=== PATIENT | female | born 2000 | race Caucasian/White ===

== ENCOUNTER 2023-01-30 02:48 | Day surgery (SDC) | payer OTHER ==
[2023-01-30 02:53] VITALS: BMI 33.4
[2023-01-30] MEDS ORDERED: Lactated Ringer's 1,000 ML IV SCH (03:10)
[2023-01-30] MEDS ORDERED: hydrALAZINE 20 MG/ML VIAL SLOW IVP PRN (06:36)
== END 2023-01-30 06:49 | disposition home or self-care (01) ==
LOC: CSHLD/OP 02:48
PROVIDERS: ATTEND Obstetrics & Gynecology
DX: O21.2 Late vomiting of pregnancy (principal); O99.891 Other specified diseases and conditions complicating pregnancy; R10.9 Unspecified abdominal pain; Z3A.31 31 weeks gestation of pregnancy; Z88.0 Allergy status to penicillin; Z91.040 Latex allergy status
CPT/HCPCS: 96360; 96361; 99283

== ENCOUNTER 2023-03-19 16:49 | Day surgery (SDC) | payer OTHER ==
[2023-03-19] MEDS ORDERED: hydrALAZINE 20 MG/ML VIAL SLOW IVP PRN (17:14)
[2023-03-19] MEDS ORDERED: Lactated Ringer's 1,000 ML IV SCH (17:30)
[2023-03-19 17:54] LABS: #Eosinphils 0.1 10x3/uL (0.0-0.5); #Monocytes 0.8 10x3/uL (0.0-1.1); #Neutrophils 9.6 10x3/uL (1.5-8.4); %Basophils 0.2 % (0.0-2.0); %Eosinophils 0.9 % (0.0-6.0); %Lymphocytes 12.8 % (18.0-47.0); %Monocytes 6.5 % (0.0-10.0); %Neutrophils 79.3 % (40.0-75.0); Hematocrit 32.8 % (34.9-44.5); Hemoglobin 10.5 g/dL (12.0-15.5); Mean Corpuscular Hemoglobin 25.7 pg (27.0-33.0); Mean Corpuscular Volume 80.2 fl (81.6-98.3); Mean Platelet Volume 12.4 fl (7.4-10.4); Platelet Count 236 10x3/uL (150-450); RBC Distribution Width 14.6 % (11.5-14.5); Red Blood Cell (RBC) Count 4.09 10x6/uL (3.90-5.03); White Blood Cell (WBC) Count 12.1 10x3/uL (3.5-10.5)
[2023-03-19] MEDS ORDERED: Ondansetron PF 4 MG/2 ML Vial IVP SCH (18:00)
[2023-03-19 18:07] VITALS: BMI 34.9
[2023-03-19 18:14] LABS: ALT (SGPT) 9 U/L (8-55); AST (SGOT) 13 U/L (5-34); Albumin 3.4 g/dL (3.5-5.0); Alkaline Phosphatase 123 U/L (40-110); Anion Gap 12 mmol/L (10-20); BUN (Urea Nitrogen) 9 mg/dL (7.0-18.7); Bilirubin, Total 0.3 mg/dL (0.2-1.2); Calc. Creatinine Clearance 222 mL/min (70-130); Carbon Dioxide 23 mmol/L (22-29); Chloride 106 mmol/L (98-107); Estimated GFR 127; Globulin 3.2 g/dL (2.4-3.5); Glucose 102 mg/dL (70-105); Potassium 4.1 mmol/L (3.5-5.1); Protein, Total 6.6 g/dL (6.0-8.3); Sodium 137 mmol/L (136-145)
[2023-03-19 18:48] LABS: Bilirubin Neg (Negative); Blood, Urine Negative (Negative); Clarity Clear (Clear); Glucose, Urine (Dipstick) Normal (Negative); Ketone, Urine Negative (Negative); Leukocyte 25 (Negative); Nitrite Negative (Negative); Protein, Urine (Dipstick) Negative (Neg-Trace); Urobilinogen Normal mg/dL (Less than 2)
[2023-03-19 19:07] LABS: Bacteria/HPF None Seen HPF (None Seen); CAUTI Indications for Culture Pregnancy; RBC/HPF None Seen HPF (0-3); Squamous Epithelial 0-3 HPF (0-3); Urine Culture Reflex Yes Yes; WBC/HPF 0-3 HPF (0-3)
== END 2023-03-19 19:36 | disposition home or self-care (01) ==
LOC: CSHLD/OP 16:49
PROVIDERS: ATTEND Student in an Organized Health Care Education/Training Program
DX: O36.8130 Decreased fetal movements, third trimester, not applicable or unspecified (principal); O23.593 Infection of other part of genital tract in pregnancy, third trimester; N89.8 Other specified noninflammatory disorders of vagina; O21.2 Late vomiting of pregnancy; O98.813 Other maternal infectious and parasitic diseases complicating pregnancy, third trimester; B37.31 Acute candidiasis of vulva and vagina; B96.89 Other specified bacterial agents as the cause of diseases classified elsewhere; Z79.899 Other long term (current) drug therapy; Z98.890 Other specified postprocedural states; Z3A.38 38 weeks gestation of pregnancy
CPT/HCPCS: 36415; 76819; 80053; 81001; 85025; 87086; 87480; 87510; 87660

== ENCOUNTER 2024-03-26 21:03 | Day surgery (SDC) | payer OTHER ==
[2024-03-26 21:24] VITALS: BMI 34.9
[2024-03-26] MEDS ORDERED: hydrALAZINE 20 MG/ML VIAL SLOW IVP PRN (21:32)
[2024-03-26] MEDS ORDERED: Lactated Ringer's 1,000 ML IV SCH (22:00)
== END 2024-03-26 23:47 | disposition home or self-care (01) ==
LOC: CSHLD/OP 21:03
PROVIDERS: ATTEND Student in an Organized Health Care Education/Training Program
DX: O47.03 False labor before 37 completed weeks of gestation, third trimester (principal); O99.013 Anemia complicating pregnancy, third trimester; O34.211 Maternal care for low transverse scar from previous cesarean delivery; Z3A.35 35 weeks gestation of pregnancy; Z87.59 Personal history of other complications of pregnancy, childbirth and the puerperium; Z90.89 Acquired absence of other organs; Z88.0 Allergy status to penicillin; Z91.040 Latex allergy status; Z79.899 Other long term (current) drug therapy
CPT/HCPCS: 96360; 99283

== ENCOUNTER 2024-03-30 11:53 | Day surgery (SDC) | payer OTHER ==
[2024-03-30] MEDS ORDERED: hydrALAZINE 20 MG/ML VIAL SLOW IVP PRN (12:33)
[2024-03-30] MEDS: Lactated Ringer's 1,000 ML IV SCH (13:00)
[2024-03-30 13:27] LABS: #Basophils Less than 0.03 10x3/uL (0.0-0.2); #Eosinophils 0.09 10x3/uL (0.0-0.5); #Monocytes 0.44 10x3/uL (0.0-1.1); #Neutrophils 5.74 10x3/uL (1.5-8.4); %Basophils 0.3 % (0.0-2.0); %Eosinophils 1.2 % (0.0-6.0); %Lymphocytes 17.8 % (18.0-47.0); %Monocytes 5.7 % (0.0-10.0); %Neutrophils 74.6 % (40.0-75.0); Hematocrit 35.7 % (34.9-44.5); Hemoglobin 10.7 g/dL (12.0-15.5); Mean Corpuscular Hemoglobin 24.3 pg (27.0-33.0); Platelet Count 181 10x3/uL (150-450); RBC Distribution Width 21.2 % (11.5-14.5); Red Blood Cell (RBC) Count 4.41 10x6/uL (3.90-5.03); White Blood Cell (WBC) Count 7.7 10x3/uL (3.5-10.5)
[2024-03-30 13:47] LABS: ALT (SGPT) 12 U/L (8-55); AST (SGOT) 13 U/L (5-34); Albumin 3.1 g/dL (3.5-5.0); Alkaline Phosphatase 124 U/L (40-110); Anion Gap 13 mmol/L (10-20); BUN (Urea Nitrogen) 6 mg/dL (7.0-18.7); Bilirubin, Total 0.4 mg/dL (0.2-1.2); Calc. Creatinine Clearance 0 mL/min (70-130); Calcium 8.6 mg/dL (7.8-10.44); Carbon Dioxide 21 mmol/L (22-29); Chloride 107 mmol/L (98-107); Estimated GFR 126; Globulin 3.2 g/dL (2.4-3.5); Glucose 76 mg/dL (70-105); Protein, Total 6.3 g/dL (6.0-8.3); Sodium 137 mmol/L (136-145)
[2024-03-30 13:53] VITALS: BMI 38.4
[2024-03-30 15:05] LABS: Bilirubin Neg (Negative); Blood, Urine Negative (Negative); Glucose, Urine (Dipstick) Normal (Negative); Ketone, Urine 50 mg/dL (Negative); Leukocyte 25 (Negative); Nitrite Negative (Negative); Protein, Urine (Dipstick) 30 mg/dl (Neg-Trace); Urobilinogen Normal mg/dL (Less than 2)
[2024-03-30 15:08] LABS: Influenza A by NAA Not Detected (NotDetected); Influenza B by NAA Not Detected (NotDetected); RSV by NAA Not Detected (NotDetected); SARS-CoV-2 NAA Rapid Test Not Detected (NotDetected)
[2024-03-30 15:14] LABS: Clarity Clear (Clear)
[2024-03-30 15:27] LABS: Bacteria/HPF None Seen HPF (None Seen); CAUTI Indications for Culture Pregnancy; Mucous/LPF 2+ LPF (<2+); RBC/HPF 0-3 HPF (0-3); Squamous Epithelial 0-3 HPF (0-3); Urine Culture Reflex Yes Yes; WBC/HPF 0-3 HPF (0-3)
[2024-03-30] MEDS ORDERED: Terbutaline Sulfate 1 MG/ML VIAL ONE (16:15)
== END 2024-03-30 17:10 | disposition home health service (06) ==
LOC: CSHLD/OP 11:53
PROVIDERS: ATTEND Student in an Organized Health Care Education/Training Program
DX: O99.891 Other specified diseases and conditions complicating pregnancy (principal); R51.9 Headache, unspecified; R42 Dizziness and giddiness; H53.8 Other visual disturbances; O99.513 Diseases of the respiratory system complicating pregnancy, third trimester; R06.02 Shortness of breath; O34.211 Maternal care for low transverse scar from previous cesarean delivery; O47.03 False labor before 37 completed weeks of gestation, third trimester; Z3A.36 36 weeks gestation of pregnancy; Z87.59 Personal history of other complications of pregnancy, childbirth and the puerperium; Z91.040 Latex allergy status; Z88.0 Allergy status to penicillin
CPT/HCPCS: 0241U; 71045; 80053; 81001; 82570; 84156; 85025; 87086; 99285; J3105

== ENCOUNTER 2024-04-05 23:02 | Day surgery (SDC) | payer OTHER ==
[2024-04-05 23:11] VITALS: BMI 34.9
[2024-04-05] MEDS ORDERED: hydrALAZINE 20 MG/ML VIAL SLOW IVP PRN (23:36)
== END 2024-04-06 01:28 | disposition home or self-care (01) ==
LOC: CSHLD/OP 23:02
PROVIDERS: ATTEND Student in an Organized Health Care Education/Training Program
DX: O47.1 False labor at or after 37 completed weeks of gestation (principal); O99.013 Anemia complicating pregnancy, third trimester; O36.8130 Decreased fetal movements, third trimester, not applicable or unspecified; O34.211 Maternal care for low transverse scar from previous cesarean delivery; O40.3XX0 Polyhydramnios, third trimester, not applicable or unspecified; Z90.89 Acquired absence of other organs; Z91.040 Latex allergy status; Z88.0 Allergy status to penicillin; Z79.899 Other long term (current) drug therapy
CPT/HCPCS: 76819; 99283

== ENCOUNTER 2024-04-13 14:28 | Day surgery (SDC) | payer OTHER ==
[2024-04-13 15:25] VITALS: BMI 34.9
[2024-04-13 15:57] LABS: Bilirubin Neg (Negative); Blood, Urine 10 (Negative); Glucose, Urine (Dipstick) >=1000 mg/dL (Negative); Ketone, Urine 15 mg/dL (Negative); Leukocyte Negative (Negative); Nitrite Negative (Negative); Protein, Urine (Dipstick) 30 mg/dl (Neg-Trace); Specific Gravity, Urine 1.025 (1.005-1.030)
[2024-04-13 16:11] LABS: Clarity Clear (Clear)
[2024-04-13] MEDS ORDERED: Ondansetron PF 4 MG/2 ML Vial IVP PRN (16:33)
[2024-04-13 16:42] LABS: CAUTI Indications for Culture Pregnancy; RBC/HPF 0-3 HPF (0-3); Squamous Epithelial 0-3 HPF (0-3); WBC/HPF 0-3 HPF (0-3)
[2024-04-13] MEDS ORDERED: Lactated Ringer's 1,000 ML IV SCH (16:45)
[2024-04-13 16:46] LABS: Bacteria/HPF None Seen HPF (None Seen); Urine Culture Reflex Yes Yes
[2024-04-13 17:02] LABS: #Basophils Less than 0.03 10x3/uL (0.0-0.2); #Eosinophils 0.16 10x3/uL (0.0-0.5); #Monocytes 0.53 10x3/uL (0.0-1.1); #Neutrophils 5.55 10x3/uL (1.5-8.4); %Basophils 0.1 % (0.0-2.0); %Monocytes 6.5 % (0.0-10.0); Hematocrit 34.1 % (34.9-44.5); Hemoglobin 10.5 g/dL (12.0-15.5); Mean Corpuscular HGB CONC 30.8 g/dL (32.0-36.0); Mean Corpuscular Volume 81.2 fL (81.6-98.3); Mean Platelet Volume 10.9 fL (7.4-10.4); Platelet Count 237 10x3/uL (150-450); RBC Distribution Width 20.7 % (11.5-14.5); White Blood Cell (WBC) Count 8.16 10x3/uL (3.5-10.5)
[2024-04-13 17:37] LABS: ALT (SGPT) Less than 7 U/L (Less than 34); AST (SGOT) 11 U/L (11-34); Albumin 2.8 g/dL (3.1-4.5); Alkaline Phosphatase 110 U/L (40-110); Anion Gap 13 mmol/L (10-20); BUN (Urea Nitrogen) 8 mg/dL (7.0-18.7); Bilirubin, Total 0.3 mg/dL (0.3-1.2); Calc. Creatinine Clearance 240 mL/min (70-130); Carbon Dioxide 22 mmol/L (22-29); Chloride 109 mmol/L (98-107); Estimated GFR 128; Globulin 3.1 g/dL (2.4-3.5); Glucose 116 mg/dL (70-105); Potassium 4.1 mmol/L (3.5-5.1); Protein, Total 5.9 g/dL (6.0-8.3); Sodium 140 mmol/L (136-145)
== END 2024-04-13 18:15 | disposition home or self-care (01) ==
LOC: CSHLD/OP 14:28
PROVIDERS: ATTEND Student in an Organized Health Care Education/Training Program
DX: O36.8130 Decreased fetal movements, third trimester, not applicable or unspecified (principal); O47.1 False labor at or after 37 completed weeks of gestation; O99.891 Other specified diseases and conditions complicating pregnancy; R19.7 Diarrhea, unspecified; O34.211 Maternal care for low transverse scar from previous cesarean delivery; Z3A.38 38 weeks gestation of pregnancy; Z87.59 Personal history of other complications of pregnancy, childbirth and the puerperium; Z91.040 Latex allergy status; Z88.0 Allergy status to penicillin; Z79.82 Long term (current) use of aspirin; Z79.899 Other long term (current) drug therapy
CPT/HCPCS: 80053; 81001; 85025; 87086

== ENCOUNTER 2024-04-15 05:31 | Inpatient (IN) | payer OTHER ==
[2024-03-22 11:19] LABS: Bilirubin Neg (Negative); Blood, Urine Negative (Negative); Clarity Clear (Clear); Glucose, Urine (Dipstick) Normal (Negative); Ketone, Urine Negative (Negative); Leukocyte Negative (Negative); Nitrite Negative (Negative); Protein, Urine (Dipstick) Negative (Neg-Trace); Urobilinogen Normal mg/dL (Less than 2)
[~2024-04-15 05:31] MED LIST: Acetaminophen 500 MG TAB PO SCH; Cyclobenzaprine 10 MG TAB PO SCH; hydrALAZINE 20 MG/ML VIAL SLOW IVP PRN
[2024-04-15] MEDS ORDERED: Misoprostol 200 MCG TAB PR PRN (05:58)
[2024-04-15] MEDS ORDERED: Oxytocin 30 units/NS 500 ML 500 ML IV SCH (05:58)
[2024-04-15] MEDS ORDERED: Promethazine HCl 25 MG/ML VIAL IM PRN ×3 (05:58→15:00)
[2024-04-15] MEDS ORDERED: Tranexamic Acid 1,000 MG/10 ML VIAL IVP PRN (05:58)
[2024-04-15] MEDS ORDERED: Acetaminophen 500 MG TAB PO PRN (05:58)
[2024-04-15] MEDS ORDERED: Ondansetron PF 4 MG/2 ML Vial IVP PRN ×4 (05:58→15:00)
[2024-04-15] MEDS ORDERED: hydrALAZINE 20 MG/ML VIAL SLOW IVP PRN ×2 (05:58→15:00)
[2024-04-15] MEDS ORDERED: Carboprost 250 MCG/ML AMP IM PRN (05:58)
[2024-04-15] MEDS ORDERED: fentaNYL 50 mcg/mL 1 mL Vial SLOW IVP PRN (05:58)
[2024-04-15] MEDS ORDERED: Bicitra 30 ML UDCUP PO PRN (05:58)
[2024-04-15] MEDS ORDERED: Zolpidem Tartrate 5 MG TAB PO PRN ×2 (05:58→15:00)
[2024-04-15] MEDS ORDERED: Diphenoxylate HCl/Atropine Tablet PO PRN (05:58)
[2024-04-15 06:00] VITALS: BMI 34.9
[2024-04-15] MEDS: Lactated Ringer's 1,000 ML IV SCH (06:30)
[2024-04-15 06:51] LABS: Hematocrit 36.6 % (34.9-44.5); Hemoglobin 11.4 g/dL (12.0-15.5); Mean Corpuscular HGB CONC 31.1 g/dL (32.0-36.0); Mean Corpuscular Hemoglobin 24.8 pg (27.0-33.0); Mean Corpuscular Volume 79.6 fL (81.6-98.3); Mean Platelet Volume 11.5 fL (7.4-10.4); Platelet Count 236 10x3/uL (150-450); RBC Distribution Width 20.8 % (11.5-14.5)
[2024-04-15] MEDS: CEFAZOLIN 2 GM in Sodium Chloride 0.9% 100 ML IVPB SCH (07:34)
[2024-04-15] MEDS: Famotidine/PF 20 mg/2ml Vial SLOW IVP PRN (07:34)
[2024-04-15 07:35] LABS: Syphilis Antibody Nonreactive (Nonreactive); Syphilis Antibody Index 0.04 S/CO (<1.00 Non-Reactive)
[2024-04-15 07:36] LABS: HBsAg Index 0.24 S/CO (0-0.99); Hep B Surf Ag - L&D Non-Reactive S/CO (NonReactive)
[2024-04-15] MEDS ORDERED: Naloxone HCl 0.4 mg/ml Vial IV PRN (08:52)
[2024-04-15] MEDS ORDERED: Moisturizing Cream (Eucerin) 113 GM JAR TOP PRN (08:52)
[2024-04-15] MEDS ORDERED: Naloxone HCl 0.4 mg/ml Vial IVP PRN ×2 (08:52)
[2024-04-15] MEDS ORDERED: diphenhydrAMINE 50 MG/ML VIAL IVP PRN (08:52)
[2024-04-15] MEDS ORDERED: Communication Order-Pharmacy FS SCH (09:00)
[2024-04-15] MEDS: fentaNYL 50 mcg/mL 1 mL Vial SLOW IVP PRN (10:35)
[2024-04-15] MEDS: Oxytocin 10 UNITS/ML VIAL ONE ×2 (11:18→11:19)
[2024-04-15] MEDS: Morphine PF 10 MG/10 ML VIAL ONE (11:18)
[2024-04-15] MEDS: Phytonadione Neonatal 1 MG/0.5 ML AMP ONE (11:18)
[2024-04-15] MEDS: Ondansetron PF 4 MG/2 ML Vial ONE (11:18)
[2024-04-15] MEDS: Erythromycin Base 0.5% Oint 1 GM TUBE ONE (11:18)
[2024-04-15] MEDS: PHENYLEPHRINE-NS 100 MCG/ML 10 ML SYRINGE ONE ×2 (11:18→11:19)
[2024-04-15] MEDS: Ketorolac Tromethamine 30 MG (1 mL) VIAL ONE (11:19)
[2024-04-15] MEDS: Meperidine HCl/PF 25 MG (1 mL) VIAL SLOW IVP PRN (11:39)
[2024-04-15] MEDS: Methylergonovine 0.2 MG/ML VIAL IM PRN (11:39)
[2024-04-15] MEDS: Morphine 4 MG/ML VIAL SLOW IVP PRN (13:22)
[2024-04-15] MEDS: Ketorolac Tromethamine 30 MG (1 mL) VIAL IVP PRN (13:59)
[2024-04-15] MEDS ORDERED: Acetaminophen 325 MG TAB PO PRN (15:00)
[2024-04-15] MEDS ORDERED: Bisacodyl 10 MG SUPP PR PRN (15:00)
[2024-04-15] MEDS ORDERED: Simethicone Chewable 80 MG TAB PO PRN (15:00)
[2024-04-15] MEDS ORDERED: Lanolin Ointment 7 GM TUBE TOP PRN (15:00)
[2024-04-15] MEDS: Morphine 4 MG/ML VIAL SLOW IVP SCH (15:06)
[2024-04-15] MEDS: Docusate 100 MG CAP PO SCH ×2 (16:06→21:10)
[2024-04-15] MEDS: Ferrous Sulfate 325 MG TAB PO SCH ×2 (16:07→22:32)
[2024-04-15] MEDS: Prenatal Vitamin 1 TAB PO SCH (16:07)
[2024-04-15] MEDS: Boostrix 0.5 ML (Tdap) VIAL (>/=7 yrs of age) IM ONE (18:32)
[2024-04-15] MEDS ORDERED: HYDROcodone/Acetaminophen 5/325 mg Tablet PO PRN (21:00)
[2024-04-15] MEDS: HYDROcodone/Acetaminophen 5/325 mg Tablet PO PRN (21:10)
[2024-04-15] MEDS: diphenhydrAMINE 25 MG CAP PO PRN (21:10)
[2024-04-15] MEDS: Ibuprofen 800 MG TAB PO SCH (23:43)
[2024-04-16 05:09] LABS: Hematocrit 31.1 % (34.9-44.5); Hemoglobin 9.4 g/dL (12.0-15.5); Mean Corpuscular HGB CONC 30.2 g/dL (32.0-36.0); Mean Corpuscular Hemoglobin 24.5 pg (27.0-33.0); Mean Corpuscular Volume 81.2 fL (81.6-98.3); Mean Platelet Volume 11.1 fL (7.4-10.4); Platelet Count 177 10x3/uL (150-450); RBC Distribution Width 20.5 % (11.5-14.5); Red Blood Cell (RBC) Count 3.83 10x6/uL (3.90-5.03); White Blood Cell (WBC) Count 7.16 10x3/uL (3.5-10.5)
[2024-04-16] MEDS: Cyclobenzaprine 10 MG TAB PO SCH ×2 (09:00→15:29)
[2024-04-16] MEDS: Prenatal Vitamin 1 TAB PO SCH (09:00)
[2024-04-16] MEDS: Morphine 4 MG/ML VIAL SLOW IVP SCH (12:18)
[2024-04-16] MEDS ORDERED: Morphine 2 MG/ML VIAL SLOW IVP SCH (12:30)
[2024-04-16 12:49] LABS: Hematocrit 30.9 % (34.9-44.5); Hemoglobin 9.7 g/dL (12.0-15.5)
[2024-04-16] MEDS: Morphine 2 MG/ML VIAL SLOW IVP PRN (20:11)
[2024-04-17] MEDS ORDERED: HYDROcodone/Acetaminophen 7.5/325 mg Tablet PO PRN (09:17)
[2024-04-17] MEDS: HYDROcodone/Acetaminophen 7.5/325 mg Tablet PO PRN (09:39)
[2024-04-18 07:25] VITALS: BP 105/53; TEMP 97.6
== END 2024-04-18 17:10 | disposition home or self-care (01) | DRG 785 ==
LOC: CSHLD 05:31 → CSHPED 14:50
PROVIDERS: ADMIT Obstetrics & Gynecology; ATTEND Obstetrics & Gynecology
PROC: 10D00Z1 Extraction of Products of Conception, Low, Open Approach (ICD-10-PCS; principal; 2024-04-15)
PROC: 0UB70ZZ Excision of Bilateral Fallopian Tubes, Open Approach (ICD-10-PCS; 2024-04-15)
DX: O34.211 Maternal care for low transverse scar from previous cesarean delivery (principal); Z3A.38 38 weeks gestation of pregnancy; Z37.0 Single live birth; O76 Abnormality in fetal heart rate and rhythm complicating labor and delivery; Z80.3 Family history of malignant neoplasm of breast; O99.03 Anemia complicating the puerperium
CPT/HCPCS: 36415; 51702; 81003; 85027; 86780; 86850; 86900; 86901; 87340; 88302; J1885; J2175; J2210; J2270; J2272; J2274; J2405; J2590; J3010; J3490; J7120